=== PATIENT | male | born 1995 | race Caucasian/White ===

== ENCOUNTER 2022-12-04 15:30 | Outpatient (CLI) | payer OTHER, SELFPAY ==
[2022-12-04 19:26] LABS: Alanine Aminotransferase 33 U/L (6-50); Albumin Level 4.8 g/dL (3.5-5.1); Alkaline Phosphatase 61 U/L (38-126); Anion Gap 8 mmol/L (8-16); Aspartate Amino Transferase 41 U/L (17-59); Bilirubin,Total 0.6 mg/dL (0.2-1.3); Blood Urea Nitrogen 13 mg/dL (9-20); Calcium 9.5 mg/dL (8.4-10.2); Carbon Dioxide 32 mmol/L (22-30); Chloride 100 mmol/L (98-107); Cholesterol 211 mg/dL (0-200); Estimated Glomerular Filt Rate > 60; Glucose 87 mg/dL (65-110); HDL Direct 42 mg/dL; Potassium 4.2 mmol/L (3.4-5.0); Sodium 140 mmol/L (137-145); Triglycerides 134 mg/dL (<150)
[2022-12-04 19:40] LABS: LDL Cholesterol Direct 140 mg/dL
[2022-12-04 20:35] LABS: Hematocrit 47.5 % (42.0-52.0); Hemoglobin 16.5 g/dL (14.0-18.0); Mean Corpuscular HGB Conc 34.7 g/dl (32-36); Mean Corpuscular Hemoglobin 32.5 pg (26-34); Mean Corpuscular Volume 93.5 fl (80-100); Mean Platelet Volume 11.1 fl (7.4-10.4); Platelet Count Result 269 k/mm3 (150-375); Red Blood Count 5.08 M/mm3 (4.6-6.20); Red Cell Distribution Width 13.8 % (11.5-14.5); White Blood Count 7.1 K/mm3 (4.5-10.0)
== END 2022-12-04 15:31 | disposition home or self-care (01) ==
LOC: ANHBWCLAB 15:31
PROVIDERS: PCP Family Medicine; Visit Provider Family Medicine
DX: Z00.00 Encounter for general adult medical examination without abnormal findings (principal)
CPT/HCPCS: 36415; 80053; 80061; 85027

== ENCOUNTER 2023-12-12 07:52 | Outpatient (CLI) | payer OTHER, SELFPAY ==
[2023-12-12 18:41] LABS: Hematocrit 51.4 % (42.0-52.0); Mean Corpuscular HGB Conc 33.1 g/dl (32-36); Mean Corpuscular Hemoglobin 32.5 pg (26-34); Mean Corpuscular Volume 98.3 fl (80-100); Mean Platelet Volume 11.2 fl (7.4-10.4); Platelet Count Result 262 k/mm3 (150-375); Red Blood Count 5.23 M/mm3 (4.6-6.20); Red Cell Distribution Width 13.6 % (11.5-14.5); White Blood Count 8.4 K/mm3 (4.5-10.0)
[2023-12-12 21:36] LABS: Alanine Aminotransferase 102 U/L (6-50); Albumin Level 4.6 g/dL (3.5-5.1); Alkaline Phosphatase 63 U/L (38-126); Anion Gap 6 mmol/L (4-12); Aspartate Amino Transferase 86 U/L (17-59); Bilirubin,Total 0.5 mg/dL (0.2-1.3); Blood Urea Nitrogen 17 mg/dL (9-20); Calcium 10.5 mg/dL (8.4-10.2); Carbon Dioxide 28 mmol/L (22-30); Chloride 106 mmol/L (98-107); Cholesterol 225 mg/dL (0-200); Estimated Glomerular Filt Rate > 60; Glucose 100 mg/dL (65-110); HDL Direct 39 mg/dL; Sodium 140 mmol/L (137-145); Triglycerides 329 mg/dL (<150)
[2023-12-12 21:47] LABS: LDL Cholesterol Direct 141 mg/dL
[2023-12-12 23:49] LABS: Hemoglobin A1C 5.1 % (<5.7)
== END 2023-12-12 07:53 | disposition home or self-care (01) ==
PROVIDERS: PCP Family Medicine; Visit Provider Nurse Practitioner Adult Health
DX: Z13.9 Encounter for screening, unspecified (principal); E66.9 Obesity, unspecified
CPT/HCPCS: 36415; 80053; 80061; 83036; 84443; 85027

== ENCOUNTER 2024-02-12 13:30 | Outpatient (CLI) | payer OTHER, SELFPAY ==
--- NOTE | ~2024-02-12 | US_ITS ---
EXAMINATION: US scrotum doppler DATE: 02/12/2024 12:37 INDICATION: Testicular pain. TECHNIQUE: Grayscale and Doppler ultrasound images of the testes were obtained. COMPARISON: None. FINDINGS: The right testis measures 5.6 x 2.0 x 3.5 cm. The left testis measures 5.4 x 2.4 x 3.7 cm. There is normal vascular flow to both testes. The right epididymis is normal with normal vascular angle w. The left epididymis is normal with normal vascular flow. There is no varicocele or hydrocele. IMPRESSION: 1. Normal testes. Reviewed, dictated and finalized at location A. IMPRESSION: 1. Normal testes.
[2024-02-12 13:54] LABS: Appearance Urine Clear (Clear); Bilirubin Urine Negative (Negative); Blood Urine Negative (Negative); Color Urine Yellow (Yellow); Glucose Urine UA Negative (Negative); Ketones Urine Negative (Negative); Leukocyte Esterase Ur Negative LEU/UL (Negative); Nitrate Urine Negative (Negative); Protein Urine Negative (Negative); Specific Grav Ur 1.018 (1.001-1.035); Urobilinogen Urine 0.2 mg/dL (<2.0)
[2024-02-12 14:10] LABS: Add Urine Microscopic? NO
[2024-02-12 14:12] LABS: Basophils Absolute Auto 0.1 K/mm3 (0.0-0.1); Basophils Percent Auto 0.9 % (0.2-1.2); Eosinophils Absolute Auto 0.1 K/mm3 (0-0.3); Eosinophils Percent Auto 0.9 % (0-4.4); Hematocrit 52.7 % (42.0-52.0); Hemoglobin 18.4 g/dL (14.0-18.0); Immature Granulocyte Absolute 0.08 K/mm3 (0.00-0.031); Immature Granulocyte Percent A 0.9 % (0-0.5); Lymphocytes Percent Auto 22.3 % (18.3-44.2); Mean Corpuscular HGB Conc 34.9 g/dl (32-36); Mean Corpuscular Hemoglobin 32.7 pg (26-34); Mean Corpuscular Volume 93.8 fl (80-100); Monocytes Absolute Auto 0.7 K/mm3 (0.1-0.6); Neutrophils Absolute Auto 6.4 K/mm3 (1.3-6.7); Platelet Count Result 232 k/mm3 (150-375); Red Blood Count 5.62 M/mm3 (4.6-6.20); Red Cell Distribution Width 14.1 % (11.5-14.5); White Blood Count 9.4 K/mm3 (4.5-10.0)
[2024-02-12 14:26] LABS: Anion Gap 9 mmol/L (4-12); Blood Urea Nitrogen 16 mg/dL (9-20); Calcium 9.5 mg/dL (8.4-10.2); Carbon Dioxide 28 mmol/L (22-30); Chloride 103 mmol/L (98-107); Estimated Glomerular Filt Rate > 60; Glucose 96 mg/dL (65-110); Potassium 4.1 mmol/L (3.4-5.0); Sodium 140 mmol/L (137-145)
[2024-02-12 15:15] LABS: Vitamin D 25 Hydroxy 24.2 ng/mL
== END 2024-02-12 13:31 | disposition home or self-care (01) ==
PROVIDERS: PCP Nurse Practitioner Adult Health; Visit Provider Nurse Practitioner Adult Health
DX: N50.819 Testicular pain, unspecified (principal); E83.52 Hypercalcemia
CPT/HCPCS: 36415; 76870; 80048; 81003; 82306; 85025; 93976

== ENCOUNTER 2024-12-11 07:52 | Outpatient (CLI) | payer OTHER, SELFPAY ==
[2024-12-11 19:14] LABS: Alanine Aminotransferase 76 U/L (6-50); Albumin Level 4.8 g/dL (3.5-5.1); Alkaline Phosphatase 71 U/L (38-126); Anion Gap 10 mmol/L (4-12); Aspartate Amino Transferase 94 U/L (17-59); Bilirubin,Total 0.9 mg/dL (0.2-1.3); Blood Urea Nitrogen 9 mg/dL (9-20); Calcium 9.6 mg/dL (8.4-10.2); Carbon Dioxide 29 mmol/L (22-30); Chloride 102 mmol/L (98-107); Cholesterol 216 mg/dL (0-200); Estimated Glomerular Filt Rate > 60; Glucose 78 mg/dL (65-110); HDL Direct 35 mg/dL; Potassium 3.9 mmol/L (3.4-5.0); Sodium 141 mmol/L (137-145); Triglycerides 174 mg/dL (<150)
[2024-12-11 19:17] LABS: Hematocrit 53.6 % (42.0-52.0); Hemoglobin 17.7 g/dL (14.0-18.0); Mean Corpuscular Hemoglobin 32.1 pg (26-34); Mean Corpuscular Volume 97.1 fl (80-100); Mean Platelet Volume 11.7 fl (7.4-10.4); Platelet Count Result 291 k/mm3 (150-375); Red Blood Count 5.52 M/mm3 (4.6-6.20); Red Cell Distribution Width 14.3 % (11.5-14.5); White Blood Count 7.2 K/mm3 (4.5-10.0)
[2024-12-11 19:37] LABS: LDL Cholesterol Direct 141 mg/dL
[2024-12-11 20:09] LABS: Vitamin D 25 Hydroxy 15.5 ng/mL
== END 2024-12-11 07:53 | disposition home or self-care (01) ==
LOC: ANHBWCLAB 07:55
PROVIDERS: PCP Nurse Practitioner Adult Health; Visit Provider Nurse Practitioner Adult Health
DX: R79.89 Other specified abnormal findings of blood chemistry (principal); Z13.9 Encounter for screening, unspecified
CPT/HCPCS: 36415; 80053; 80061; 82306; 85027